=== PATIENT | female | born 1990 | race Caucasian/White ===

== ENCOUNTER 2017-06-28 08:00 | Inpatient (IN) ==
[2017-06-28] MEDS ORDERED: Famotidine 20 MG/2 ML VIAL IVP PRN (08:47)
[2017-06-28] MEDS ORDERED: Naloxone 0.4 MG/ML INJ IVP PRN ×2 (08:47→15:19)
[2017-06-28] MEDS ORDERED: Ringers Solution, Lactated 1,000 ML ONE ×3 (08:50→17:10)
[2017-06-28] MEDS ORDERED: Oxytocin 20 units/ LR 1000 mL 20 UNIT/1,000 ML BAG IVC SCH ×2 (09:00→18:49)
[2017-06-28] MEDS ORDERED: Ringers Solution, Lactated 1,000 ML IVC SCH ×2 (09:00→15:30)
[2017-06-28 09:32] LABS: Amphetamine Screen,Urine Negative ng/mL (Cutoff=1000); Barbiturate Screen,Urine Negative ng/mL (Cutoff=200); Benzodiazepines Screen,Urine Negative ng/mL (Cutoff=200); Cannabinoid Screen,Urine Positive ng/mL (Cutoff = 50); Cocaine Screen,Urine Negative ng/mL (Cutoff= 300); Opiate Screen,Urine Negative ng/mL (Cutoff=300); Phencyclidine Screen,Urine Negative ng/mL (Cutoff=25)
[2017-06-28 09:36] LABS: Basophils % 0.2 %; Eosinophils # 0.1 K/mcL (0.0-0.6); Eosinophils % 0.5 %; Hemoglobin 10.3 g/dL (11.5-15.4); Immature Granulocytes % 0.6 % (0-4); Lymphocytes # 2.1 K/mcL (0.6-4.6); Lymphocytes % 16.9 %; Mean Corpuscular HGB Conc 33.2 g/dL (31.6-35.5); Mean Corpuscular Hemoglobin 28.2 pg (28.0-33.3); Mean Corpuscular Volume 84.9 fL (83.0-100.0); Mean Platelet Volume 10.9 fL (9.4-12.4); Monocytes # 0.5 K/mcL (0.0-1.3); Monocytes % 3.9 %; Neutrophils # 9.8 K/mcL (1.6-8.9); Platelet Count 223 K/mcL (140-400); Red Blood Count 3.65 M/mcL (3.82-4.97); Red Cell Distribution Width 13.2 % (11.5-14.5); Segmented Neutrophils % 77.9 %
--- NOTE | 2017-06-28 09:44 | OB/GYN History & Physical ---
Date of Encounter: 06/28/17 Time of Encounter: 09:40 Assessment and Plan (1) and not yet delivered in third trimester Current visit: Yes Status: Acute (2) 39 weeks gestation of Current visit: Yes Status: Acute (3) Encounter for elective induction of labor Current visit: Yes Status: Acute Patient will be induced with Pitocin plan is to anticipate vaginal delivery History of Present Illness HPI: Ms. Tay is a 26 year old female 5 para 0101 at 39 and one sevenths weeks by 7-5/7 week ultrasound who presented for induction of labor secondary to term with favorable cervix. Patient was 4 cm in the office last week and requested we introduced a possible. Patient states she been having occasional contractions nothing that is tolerable denies any leaking of fluid. States is having good movement. Patient is requesting a tubal ligation tubal papers have previously been signed. Patient is GBS negative, rubella positive, Varicella positive, Rh+ Past Med Surg Social Fam HX - Past Medical History Source: patient, old records reviewed Medical history: no medical history Psychiatric history: no psych history - Social History Smoking Status: Current every day smoker Packs per day: 4 cigerattes a day Smokeless Tobacco Status: No Alcohol use: none Drug use: none Occupational status: unemployed Current living situation: Home - Independent Activity Level: Independent ambulation Recent Out of Country Travel Within the Last 8 Weeks: No Exposure or Possible Exposure to Illness During Travel: No - Additional Family History Additional family history: Family history is noncontributory at this time Obstetrical History - Pregnancies : 5 Para: 1 Term: 1 : 0 Ab's: 3 Livin Medications and Allergies Formula Tablet tab PO DAILY 06/28/17 [History] 3 Allergy/AdvReac Type Severity Reaction Status Date / Time No Known Allergies Allergy Verified 09/03/16 21:34 Exam - Constitutional Constitutional: well developed, well nourished, no acute distress, average body habitus - HEENT HEENT: EOMI, PERRL, Mucus Membranes Moist - Neck Neck exam: full ROM - Lungs Respiratory exam: CTAB - Cardiovascular Cardiovascular exam: RRR - Cervix Dilation: 4 Effacement: 80 Station: 0 ( heart tones 140s and reactive no contraction seen) Results Result Diagrams: 06/28/17 08:48 Abnormal lab results WBC 12.6 K/mcL (4.3-11.1) H 06/28/17 08:48 RBC 3.65 M/mcL (3.82-4.97) L 06/28/17 08:48 Hgb 10.3 g/dL (11.5-15.4) L 06/28/17 08:48 Hct 31.0 % (35.3-44.9) L 06/28/17 08:48 Neutrophils # 9.8 K/mcL (1.6-8.9) H 06/28/17 08:48 U Marijuana (THC) Screen Positive ng/mL (Cutoff = 50) H 06/28/17 08:47 All other labs normal. - VTE Reasons for not Prescribing Prophylaxis: Treatment not Indicated - Low risk for VTE
[2017-06-28] MEDS ORDERED: Ringers Solution, Lactated 500 ML IVC ONE (11:55)
[2017-06-28] MEDS ORDERED: EPHEDrine 50 MG/ML VIAL IVP PRN (11:55)
[2017-06-28] MEDS ORDERED: Epidural Premix (fent/bupiv) 110 ML EP ONE (11:56)
[2017-06-28] MEDS ORDERED: Epidural Premix (fent/bupiv) 110 ML EP SCH (12:00)
--- NOTE | 2017-06-28 12:22 | Anesthesia Evaluation PreOp ---
Date of Encounter: 06/28/17 Time of Encounter: 12:21 - Past History Planned Operation: ISHMAEL Cardiac History: Denies any Significant Hx Pulmonary History: Smoker OPERATIONS DEVELOPER History: Denies Any Significant HX Other Medical History: Denies Any Significant HX Anesthesia History: No Prior Anesthetic Complications, Past Anesthesia Alcohol Use: none Drug use: none Medications and Allergies Formula Tablet tab PO DAILY 06/28/17 [History] 3 Allergy/AdvReac Type Severity Reaction Status Date / Time No Known Allergies Allergy Verified 09/03/16 21:34 - Meds/Allergy Pre-op Review Medications Reviewed: Yes Allergies Reviewed: Yes Beta Blockers on Current Med List: No Anesthesia Results - Labs 06/28/17 08:48 Anesthesia Exam O2 Sat Height 1.75 m Weight 91 kg NPO (# of Hours): 5 Pain Scale: 9 Pain Scale Used: Numeric (1 - 10) - HEENT Pupil (Motor): Pupils equal Mallampati: II Teeth: Normal Oral Opening: Greater than 3 - OPERATIONS DEVELOPER LOC: Oriented OPERATIONS DEVELOPER Motor: Normal RUE, Normal LUE, Normal RLE, Normal LLE, Normal Face OPERATIONS DEVELOPER Sensory: Normal: RUE, LUE, RLE, LLE, Face - Cardiac Rhythm: Regular Murmur: None JVD: No Carotid Bruit: No - Pulmonary Breath Sounds: bilateral Clear Respiratory Effort: Symmetrical Anesthesia Assess/Plan ASA Score: 2 Modified To Scale for Level of Consciousness: Cooperative, oriented, and tranquil Anesthetic Plan: General (plan b), Regional (plan a) Autologous Blood: Yes Monitoring Plan: Standard Monitors
--- NOTE | 2017-06-28 12:24 | Anesthesia Procedures ---
Date of Encounter: 06/28/17 Time of Encounter: 12:22 Procedures: Anesthesia - Epidural/Spinal Patient ID/Chart reviewed: Yes Patient examined: Yes OB Eval: Gestational age: 39 OB Eval: : 5 OB Eval: Hx Para: 1 OB Eval: Dilated at (cm): 4 OB Eval: Contractions: Non-stressed pattern Supplemental Oxygen: None/Room Air Site Prep: Aseptic Technique, Sterile prep and drape, Povidone-Iodine 1% Patient position: upright Local Anesthetic: Lidocaine 1% Amount of Local Anesthetic used: 3 Touhy Needle Gauge: 18 Touhy Needle Depth (cm): 8 Catheter Depth at Skin (cm): 19 Test Dose (1.5% Lido + Epi): Volume given (mls): 5 Test Dose Result: Negative Loading Dose: Other: 10mls of epidural pharm bag premix solution Loading Dose Administered: Thru Catheter Infusion Med: 0.125% Bupivacaine w/ 2 mcg/ml Fentanyl Infusion Rate (mls/hr): 15 ([id number]) Catheter Secured in Place: Tegaderm, Tape Interspace Used: L3-L4 Loss of Resistance (KAYODE): Yes Blood: No CSF: No Paresthesia: No Procedure: pt tolerated procedure well. no complications. vss. fhr stable. see nursing notes for full vitals.
[2017-06-28] MEDS ORDERED: Lidocaine 1% 20 ML MDV INFILT PRN (14:13)
[2017-06-28] MEDS ORDERED: *HR* Propofol 200 MG/20 ML VIAL IVP ONE (14:52)
[2017-06-28] MEDS ORDERED: Lidocaine -MPF 2% 5 ML VIAL ONE (15:01)
[2017-06-28] MEDS ORDERED: *HR* Succinylcholine 200 MG/10 ML VIAL IVP ONE (15:01)
[2017-06-28] MEDS ORDERED: *HR* Rocuronium Bromide 50 MG/5 ML VIAL ONE (15:01)
[2017-06-28] MEDS ORDERED: *HR* FentaNYL (PF) 100 MCG/2 ML VIAL ONE (15:02)
[2017-06-28] MEDS ORDERED: Ondansetron 4 MG/2 ML VIAL ONE ×2 (15:15→15:58)
[2017-06-28] MEDS ORDERED: Dexamethasone 4 MG/ML VIAL ONE (15:15)
[2017-06-28] MEDS ORDERED: MORPHINE SUL Oral CONC 10 MG/0.5 ML ORAL.SYG SL PRN (15:19)
[2017-06-28] MEDS ORDERED: Acetaminophen IV 1,000 MG/100 ML INFUS..BTL IVPB ONE (15:19)
[2017-06-28] MEDS ORDERED: Ondansetron 4 MG/2 ML VIAL IVP ONE (15:19)
[2017-06-28] MEDS ORDERED: *HR* OxyCODONE Immed Rel 5 MG TABLET PO PRN (15:19)
[2017-06-28] MEDS ORDERED: Albuterol 2.5 MG/3 ML NEBULIZER IH ONE (15:19)
[2017-06-28] MEDS ORDERED: *HR* Meperidine 25 MG/ML SYRINGE IVP PRN (15:19)
[2017-06-28] MEDS ORDERED: *HR* Promethazine 25 MG/ML VIAL IVP PRN (15:19)
[2017-06-28 15:45] LABS: Basophils % 0.2 %; Eosinophils # 0.1 K/mcL (0.0-0.6); Eosinophils % 0.4 %; Hematocrit 24.6 % (35.3-44.9); Immature Granulocytes % 0.7 % (0-4); Immature Platelets 7.4 % (1.1-6.1); Lymphocytes # 2.9 K/mcL (0.6-4.6); Lymphocytes % 15.6 %; Mean Corpuscular HGB Conc 32.5 g/dL (31.6-35.5); Mean Corpuscular Hemoglobin 28.5 pg (28.0-33.3); Mean Corpuscular Volume 87.5 fL (83.0-100.0); Mean Platelet Volume 11.2 fL (9.4-12.4); Monocytes # 0.9 K/mcL (0.0-1.3); Monocytes % 4.9 %; Neutrophils # 14.4 K/mcL (1.6-8.9); Platelet Count 244 K/mcL (140-400); Red Blood Count 2.81 M/mcL (3.82-4.97); Red Cell Distribution Width 13.1 % (11.5-14.5); Segmented Neutrophils % 78.2 %
[2017-06-28] MEDS ORDERED: *HR* Promethazine 25 MG/ML VIAL IVP ONE (16:05)
--- NOTE | 2017-06-28 16:05 | OB/GYN Procedure Note ---
Delivery - Delivery Date: 06/28/17 Provider: Donovan Lambert Intrapartum events: none Delivery induction: oxytocin Delivery monitor: external FHT, external uterine Anesthesia: local, epidural Estimated Blood Loss: 1,000 ( hemorrhage due to retained placenta) - (s) Infant A Infant Delivery Date: 06/28/17 Delivery Time: 14:20 Presentation: vertex Position: PAT Route of delivery: Gender: Male Viability: Viable Pounds: 7 Ounces: 0 Weight Gram: 3.185 kg at 1 minute: 8 at 5 mins: 9 Shoulder Dystocia: not encountered Specimens collected: cord blood Placenta: spontaneous, uterine exploration, retained Cord: 3 umbilical vessels - Repair Episiotomy: midline Laceration Description: None - Complications Delivery complications: hemorrhage, retained placenta Delivery comments: Patient is a 26-year-old 5 para 1031 at 39 and 1 since weeks who presented for induction of labor secondary to term with favorable cervix. Patient was only 4 cm in the office this week and wanted to be induced. Patient was brought to labor and delivery where she was still 4 cm 0 station she was started on Pitocin she has spontaneous rupture membranes of clear fluid she received an epidural soon after this within 2 hours patient was complete and pushing she pushed for approximately 15 minutes, the baby started having decelerations down to the 60s and 70s with slow return to baseline status , and the patient was not able to push through the perineum. Because tones were not coming back to baseline in midline episiotomy was cut and we delivered a viable male in left occiput anterior presentation at 1420. The was placed on the abdomen and bulb suctioned. Cord is clamped and cut and cord blood was then collected. Placenta was delivered spontaneously with a three- vessel cord was noted she had trailing membranes. These membranes were grasped and a large portion of membranes were removed. Patient had minimal bleeding at this time and we proceeded to repair the midline episiotomy with a 3-0 Monocryl in the usual fashion along with 3-0 Vicryl. After we had repaired the episiotomy patient was noted to have significant amount of bleeding with large clots. The uterus is explored and she was noted to have no placental tissue and membranes within the cavity. I was able to remove a large amount of membranes and placental tissue a bedside but we will getting into significant amount of bleeding and blood loss and I felt it was not getting it all out. Patient's epidural was not working as well as it would like felt it was unsafe to continue in the room and I recommended we take her to the operating room for a D&C. Please refer to the operative note for the remaining portion of this procedure. - Disposition Mom disposition: to OR [place] disposition: taken to nursery
--- NOTE | 2017-06-28 16:18 | Operative Note ---
Date of procedure: 06/28/17 Pre-op diagnosis: Status post vaginal delivery, hemorrhage, retained placenta Post-op diagnosis: same (With placenta accreta) Procedure: Dilatation and curettage Complications: Intraoperative hemorrhage Anesthesia: CHARLENE Surgeon: Donovan Lambert Was there an mortgage assistant present: No Estimated blood loss (cc): 500 Specimen: None Condition: stable Disposition: other (Labor and delivery room) Procedure in Detail: Patient is a 26-year-old 5 para 1031 status post vaginal delivery in developed significant hemorrhage secondary to retained placenta immediately after delivery. I was unable to get the bleeding under control in the patient's room and recommended D&C in the operating room. Procedure: Patient was taken the operating room and general anesthesia was found to be adequate. She was placed in dorsolithotomy position prepped and draped in usual fashion. Timeout was then obtained. Patient was explored large amount of clots were removed from the endometrial and I could feel irregularities to the anterior uterine wall. Using the banjo curet enlarged ring forceps I was able to peel off large amount of tissue and retained membranes. Patient continued to have significant amount of bleeding she did receive 2 doses of Methergine IM intraoperatively and 600 g of Cytotec rectally intraoperatively. We did attempt to place a Jain catheter and follow- up a 30 mL balloon in the endometrial cavity to see if we could tamponard off the bleeding but the catheter balloon would not stay in the cavity. We attempted one more scraping with the curette and at this point bleeding did significantly decrease. At this point it was noted that my episiotomy had opened back up and this was reapproximated with the 3-0 Monocryl while we observed for excessive bleeding. We did observe the patient for approximately 10 minutes and she was noted to have minimal bleeding at this time we did type and cross the patient for 2 units of blood and going to come back 8 and we will transfuse 2 units. With minimal bleeding noted the procedure was then terminated. Patient will be taken to the recovery room where she will be observed for a minimum of 2 hours and 1 stable for transfer to the floor.. Sponge counts were correct 3. Patient did receive preoperative antibiotic.
[2017-06-28] MEDS ORDERED: 0.9 % Sodium Chloride 1,000 ML ONE ×2 (16:29→17:10)
[2017-06-28] MEDS ORDERED: Measles/Mumps/Rubella Vacc 0.5 ML VIAL SQ PRN (18:49)
[2017-06-28] MEDS ORDERED: Acetaminophen 325 MG TABLET PO PRN (18:49)
[2017-06-28] MEDS: *HR* HYDROcodone/Acet 5/325 mg TABLET PO PRN (19:37)
[2017-06-28] MEDS: Ibuprofen 600 MG TABLET PO PRN (21:16)
[2017-06-28] MEDS: Benzocaine/Menthol 56 GM AEROSOL SPRAY TP PRN (21:53)
[2017-06-28] MEDS: ceFAZolin 2,000 MG in D5% in Water 100 ML IVPB SCH (22:59)
[2017-06-29 04:22] LABS: Basophils % 0.1 %; Hematocrit 22.2 % (35.3-44.9); Hemoglobin 7.6 g/dL (11.5-15.4); Immature Granulocytes % 0.7 % (0-4); Lymphocytes # 2.4 K/mcL (0.6-4.6); Lymphocytes % 10.2 %; Mean Corpuscular HGB Conc 34.2 g/dL (31.6-35.5); Mean Corpuscular Hemoglobin 28.6 pg (28.0-33.3); Mean Corpuscular Volume 83.5 fL (83.0-100.0); Mean Platelet Volume 11.3 fL (9.4-12.4); Monocytes # 1.2 K/mcL (0.0-1.3); Monocytes % 4.9 %; Neutrophils # 19.9 K/mcL (1.6-8.9); Platelet Count 158 K/mcL (140-400); Red Blood Count 2.66 M/mcL (3.82-4.97); Red Cell Distribution Width 13.4 % (11.5-14.5); Segmented Neutrophils % 84.1 %
[2017-06-29] MEDS: ceFAZolin 2,000 MG in D5% in Water 100 ML IVPB SCH ×2 (06:41→16:39)
[2017-06-29] MEDS: Prenatal Vit/FA 1 EACH TABLET PO SCH (07:21)
[2017-06-29] MEDS: *HR* HYDROcodone/Acet 5/325 mg TABLET PO PRN ×3 (07:21→20:22)
[2017-06-29] MEDS: Benzocaine/Menthol 56 GM AEROSOL SPRAY TP PRN (07:22)
--- NOTE | 2017-06-29 08:26 | OB/GYN Progress Note ---
Date of Encounter: 06/29/17 Time of Encounter: 08:25 - Assessment and Plan (1) Retained products of conception, following delivery with hemorrhage Current Visit: Yes Status: Acute Transfuse 1 unit PRBC Monitor VS Reassess Hgb tomorrow morning Continue IV antibiotics Continue tocolytics 24 hours post delivery Anticipate discharge in AM (2) Vaginal delivery Current Visit: Yes Status: Acute Continue routine care Anticipate discharge tomorrow Subjective - Subjective Principal diagnosis: Vaginal Delivery Interval history: VSS. States feeling better than yesterday but still weak and tired. Discussed receiving another unit of blood, patient agreeable "if you think I need it." Pain well controlled Tolerating regular diet Voiding without difficulty Denies chest pain, tachycardia or shortness of breath Holding infant, reports baby taking formula well Significant other supportive at bedside. Patient reports: appetite normal, voiding normally, pain well controlled, ambulating normally [place]: doing well, bottle feeding Objective - Latest Vital Signs Latest vital signs: Vital Signs Temp Pulse Pulse Resp BP Pulse Ox 06/29/17 07:53 97.9 F 77 16 139/87 99 06/29/17 02:00 97.8 F 77 77 16 130/90 100 06/28/17 21:00 98.7 F 88 88 14 150/82 06/28/17 20:00 98.4 F 102 14 136/98 98 06/28/17 19:30 98.9 F 94 16 115/82 99 06/28/17 19:00 14 06/28/17 17:30 98.4 F 117 18 106/81 06/28/17 17:14 97.8 F 114 16 101/78 06/28/17 17:01 97.8 F 112 16 125/100 100 06/28/17 16:50 98.5 F 117 20 111/70 100 06/28/17 16:32 97.5 F L 115 20 130/80 Intake and Output 06/28/17 06/29/17 06/29/17 23:59 07:59 15:59 Intake Total 990 / 990 500 / 500 Output Total 400 / 400 1200 / 1200 Balance 590 / 590 -700 / -700 Intake: IV Fluids 100 / 100 Ancef 2,000 MG In Dextrose 5% 100 / 100 100 ML @ 200 mls/hr IVPB Q8HR [facility] Rx#:[id number] Oral 500 / 500 Blood Product 690 / 690 Rbcs Leuko Poor As-1 Unit 340 / 340 [id number] Rbcs Leuko Poor As-1 Unit 350 / 350 [id number] Free Water 200 / 200 Output: Urine 400 / 400 1200 / 1200 - Exam Lungs: bilateral: normal Chest: Normal S1, Normal S2 Extremities: Present: normal Abdomen: Present: normal appearance, soft, tenderness (on palpation) Uterus: Present: firm Uterus Position: 1 Finger Below Umbilicus, Midline - Labs Labs: Laboratory Results - last 24 hr 06/28/17 06/28/17 06/28/17 08:47 08:48 15:27 WBC 12.6 H 18.4 H RBC 3.65 L 2.81 L Hgb 10.3 L 8.0 L D Hct 31.0 L 24.6 L MCV 84.9 87.5 MCH 28.2 28.5 MCHC 33.2 32.5 RDW 13.2 13.1 Plt Count 223 244 MPV 10.9 11.2 Immature Gran % 0.6 0.7 Seg Neutrophils % 77.9 78.2 Lymphocytes % 16.9 15.6 Monocytes % 3.9 4.9 Eosinophils % 0.5 0.4 Basophils % 0.2 0.2 Neutrophils # 9.8 H 14.4 H Lymphocytes # 2.1 2.9 Monocytes # 0.5 0.9 Eosinophils # 0.1 0.1 Basophils # 0.0 0.0 Immature Plt Fraction 7.4 H Urine Opiates Screen Negative Ur Barbiturates Screen Negative Ur Phencyclidine Scrn Negative Ur Amphetamines Screen Negative U Benzodiazepines Scrn Negative Urine Cocaine Screen Negative U Marijuana (THC) Screen Positive H Blood Type Antibody Screen Crossmatch 06/28/17 06/29/17 15:27 04:07 WBC 23.7 H RBC 2.66 L Hgb 7.6 L Hct 22.2 L MCV 83.5 MCH 28.6 MCHC 34.2 RDW 13.4 Plt Count 158 MPV 11.3 Immature Gran % 0.7 Seg Neutrophils % 84.1 Lymphocytes % 10.2 Monocytes % 4.9 Eosinophils % 0.0 Basophils % 0.1 Neutrophils # 19.9 H Lymphocytes # 2.4 Monocytes # 1.2 Eosinophils # 0.0 Basophils # 0.0 Immature Plt Fraction Urine Opiates Screen Ur Barbiturates Screen Ur Phencyclidine Scrn Ur Amphetamines Screen U Benzodiazepines Scrn Urine Cocaine Screen U Marijuana (THC) Screen Blood Type A POSITIVE Antibody Screen NEGATIVE Crossmatch See Detail
[2017-06-29] MEDS ORDERED: Methylergonovine 0.2 MG/ML AMPUL IM ONE (08:31)
[2017-06-29] MEDS ORDERED: miSOPROStol 100 MCG TABLET PO ONE (08:31)
[2017-06-29] MEDS ORDERED: 0.9 % Sodium Chloride 1,000 ML ONE (08:51)
[2017-06-29] MEDS ORDERED: *HR* Labetalol 20 MG/4 ML SYRINGE IVP PRN (09:46)
[2017-06-29] MEDS: Ibuprofen 600 MG TABLET PO PRN ×2 (10:33→16:34)
[2017-06-29 15:30] LABS: Basophils % 0.2 %; Eosinophils % 0.2 %; Hematocrit 27.2 % (35.3-44.9); Hemoglobin 9.3 g/dL (11.5-15.4); Immature Granulocytes % 0.7 % (0-4); Lymphocytes # 3.8 K/mcL (0.6-4.6); Lymphocytes % 21.1 %; Mean Corpuscular HGB Conc 34.2 g/dL (31.6-35.5); Mean Corpuscular Hemoglobin 29.2 pg (28.0-33.3); Mean Corpuscular Volume 85.5 fL (83.0-100.0); Monocytes # 0.8 K/mcL (0.0-1.3); Monocytes % 4.6 %; Neutrophils # 13.3 K/mcL (1.6-8.9); Platelet Count 170 K/mcL (140-400); Red Blood Count 3.18 M/mcL (3.82-4.97); Red Cell Distribution Width 13.7 % (11.5-14.5); Segmented Neutrophils % 73.2 %
[2017-06-29 15:50] LABS: Alanine Aminotransferase 10 Units/L (7-52); Aspartate Amino Transferase 36 Units/L (13-39); BUN/Creatinine Ratio 16 (6-26); Blood Urea Nitrogen 8 mg/dL (6-20); Lactate Dehydrogenase 293 Units/L (140-271); Uric Acid 4.4 mg/dL (2.3-7.6); eGFR For African Americans > 60 (> 60); eGFR For Non-African Americans > 60 (> 60)
[2017-06-29 20:58] LABS: Hematocrit 30.1 % (35.3-44.9); Hemoglobin 10.2 g/dL (11.5-15.4)
[2017-06-30] MEDS ORDERED: ceFAZolin 2,000 MG in 0.9 % Sodium Chloride 100 ML IVPB SCH
[2017-06-30] MEDS: Ibuprofen 600 MG TABLET PO PRN ×2 (00:54→08:49)
[2017-06-30 04:53] LABS: Basophils % 0.3 %; Eosinophils # 0.1 K/mcL (0.0-0.6); Eosinophils % 0.6 %; Hematocrit 29.2 % (35.3-44.9); Hemoglobin 9.7 g/dL (11.5-15.4); Lymphocytes # 4.6 K/mcL (0.6-4.6); Lymphocytes % 32.1 %; Mean Corpuscular HGB Conc 33.2 g/dL (31.6-35.5); Mean Corpuscular Hemoglobin 28.7 pg (28.0-33.3); Mean Corpuscular Volume 86.4 fL (83.0-100.0); Mean Platelet Volume 11.2 fL (9.4-12.4); Monocytes # 0.6 K/mcL (0.0-1.3); Monocytes % 4.2 %; Neutrophils # 8.8 K/mcL (1.6-8.9); Platelet Count 190 K/mcL (140-400); Red Blood Count 3.38 M/mcL (3.82-4.97); Red Cell Distribution Width 13.8 % (11.5-14.5); Segmented Neutrophils % 61.8 %
[2017-06-30 05:07] LABS: Alanine Aminotransferase 12 Units/L (7-52); Aspartate Amino Transferase 39 Units/L (13-39); BUN/Creatinine Ratio 12 (6-26); Blood Urea Nitrogen 5 mg/dL (6-20); Lactate Dehydrogenase 288 Units/L (140-271); Uric Acid 4.3 mg/dL (2.3-7.6); eGFR For African Americans > 60 (> 60); eGFR For Non-African Americans > 60 (> 60)
[2017-06-30 08:47] VITALS: BP 127/86
[2017-06-30] MEDS: Prenatal Vit/FA 1 EACH TABLET PO SCH (08:49)
--- NOTE | 2017-06-30 08:51 | Discharge Summary ---
Date of Encounter: 06/30/17 Time of Encounter: 08:47 - Discharge Diagnosis (1) Vaginal delivery Priority: Primary Status: Acute Comments: Continue routine care discharge home today (2) Retained products of conception, following delivery with hemorrhage Priority: Secondary Status: Acute Comments: Continue Ferrous sulfate Percocet for break through pain: OAR[facility] report reviewed Discharge home today follow up with Dr. Lambert in 4 weeks - Discharge Medications Prescriptions: HYDROcodone/Acet 5/325 mg [[place] 5-325 mg] 1 tab PO Q6HR PRN 3 Days #12 tablet PRN Reason: Moderate Pain (4-6) Ibuprofen [Motrin] 600 mg PO Q6HR PRN #60 tablet PRN Reason: Cramping Ferrous Sulfate 325 mg PO BID #60 tablet Home Medications: Formula Tablet tab PO DAILY 06/28/17 [History] Benzocaine/Menthol [place] [Dermoplast [place]] 1 appl TP QID PRN aerosol 06/30/17 [Rx] Docusate [Colace] 100 mg PO BID capsule 06/30/17 [Rx] Ferrous Sulfate 325 mg PO BID #60 tablet 06/30/17 [Rx] HYDROcodone/Acet 5/325 mg [[place] 5-325 mg] 1 tab PO Q6HR PRN 3 Days #12 tablet 06/30/17 [Rx] Ibuprofen [Motrin] 600 mg PO Q6HR PRN #60 tablet 06/30/17 [Rx] Vit/FA 1 each PO DAILY tablet 06/30/17 [Rx] Allergies/Adverse Reactions: 3 Allergy/AdvReac Type Severity Reaction Status Date / Time No Known Allergies Allergy Verified 09/03/16 21:34 Data Procedures and tests throughout hospitalization: Laboratory Tests 06/28/17 06/28/17 06/28/17 08:47 08:48 15:27 WBC 12.6 H 18.4 H RBC 3.65 L 2.81 L Hgb 10.3 L 8.0 L D Hct 31.0 L 24.6 L MCV 84.9 87.5 MCH 28.2 28.5 MCHC 33.2 32.5 RDW 13.2 13.1 Plt Count 223 244 MPV 10.9 11.2 Immature Gran % 0.6 0.7 Seg Neutrophils % 77.9 78.2 Lymphocytes % 16.9 15.6 Monocytes % 3.9 4.9 Eosinophils % 0.5 0.4 Basophils % 0.2 0.2 Neutrophils # 9.8 H 14.4 H Lymphocytes # 2.1 2.9 Monocytes # 0.5 0.9 Eosinophils # 0.1 0.1 Basophils # 0.0 0.0 Immature Plt Fraction 7.4 H BUN Creatinine Est GFR ( Amer) Est GFR (Non-Af Amer) BUN/Creatinine Ratio Uric Acid AST ALT Lactate Dehydrogenase Urine Opiates Screen Negative Ur Barbiturates Screen Negative Ur Phencyclidine Scrn Negative Ur Amphetamines Screen Negative U Benzodiazepines Scrn Negative Urine Cocaine Screen Negative U Marijuana (THC) Screen Positive H Blood Type Antibody Screen Crossmatch 06/28/17 06/29/17 06/29/17 15:27 04:07 15:09 WBC 23.7 H 18.1 H RBC 2.66 L 3.18 L Hgb 7.6 L 9.3 L D Hct 22.2 L 27.2 L MCV 83.5 85.5 MCH 28.6 29.2 MCHC 34.2 34.2 RDW 13.4 13.7 Plt Count 158 170 MPV 11.3 11.0 Immature Gran % 0.7 0.7 Seg Neutrophils % 84.1 73.2 Lymphocytes % 10.2 21.1 Monocytes % 4.9 4.6 Eosinophils % 0.0 0.2 Basophils % 0.1 0.2 Neutrophils # 19.9 H 13.3 H Lymphocytes # 2.4 3.8 Monocytes # 1.2 0.8 Eosinophils # 0.0 0.0 Basophils # 0.0 0.0 Immature Plt Fraction BUN Creatinine Est GFR ( Amer) Est GFR (Non-Af Amer) BUN/Creatinine Ratio Uric Acid AST ALT Lactate Dehydrogenase Urine Opiates Screen Ur Barbiturates Screen Ur Phencyclidine Scrn Ur Amphetamines Screen U Benzodiazepines Scrn Urine Cocaine Screen U Marijuana (THC) Screen Blood Type A POSITIVE Antibody Screen NEGATIVE Crossmatch See Detail 06/29/17 06/29/17 06/30/17 15:09 20:23 04:15 WBC 14.3 H RBC 3.38 L Hgb 10.2 L 9.7 L Hct 30.1 L 29.2 L MCV 86.4 MCH 28.7 MCHC 33.2 RDW 13.8 Plt Count 190 MPV 11.2 Immature Gran % 1.0 Seg Neutrophils % 61.8 Lymphocytes % 32.1 Monocytes % 4.2 Eosinophils % 0.6 Basophils % 0.3 Neutrophils # 8.8 Lymphocytes # 4.6 Monocytes # 0.6 Eosinophils # 0.1 Basophils # 0.0 Immature Plt Fraction BUN 8 Creatinine 0.49 L Est GFR ( Amer) > 60 Est GFR (Non-Af Amer) > 60 BUN/Creatinine Ratio 16 Uric Acid 4.4 AST 36 ALT 10 Lactate Dehydrogenase 293 H Urine Opiates Screen Ur Barbiturates Screen Ur Phencyclidine Scrn Ur Amphetamines Screen U Benzodiazepines Scrn Urine Cocaine Screen U Marijuana (THC) Screen Blood Type Antibody Screen Crossmatch 06/30/17 04:15 WBC RBC Hgb Hct MCV MCH MCHC RDW Plt Count MPV Immature Gran % Seg Neutrophils % Lymphocytes % Monocytes % Eosinophils % Basophils % Neutrophils # Lymphocytes # Monocytes # Eosinophils # Basophils # Immature Plt Fraction BUN 5 L Creatinine 0.41 L Est GFR ( Amer) > 60 Est GFR (Non-Af Amer) > 60 BUN/Creatinine Ratio 12 Uric Acid 4.3 AST 39 ALT 12 Lactate Dehydrogenase 288 H Urine Opiates Screen Ur Barbiturates Screen Ur Phencyclidine Scrn Ur Amphetamines Screen U Benzodiazepines Scrn Urine Cocaine Screen U Marijuana (THC) Screen Blood Type Antibody Screen Crossmatch Labs on day of discharge: Labs from last 24 hours 06/30/17 06/30/17 06/29/17 04:15 04:15 20:23 WBC 14.3 H RBC 3.38 L Hgb 9.7 L 10.2 L Hct 29.2 L 30.1 L MCV 86.4 MCH 28.7 MCHC 33.2 RDW 13.8 Plt Count 190 MPV 11.2 Immature Gran % 1.0 Seg Neutrophils % 61.8 Lymphocytes % 32.1 Monocytes % 4.2 Eosinophils % 0.6 Basophils % 0.3 Neutrophils # 8.8 Lymphocytes # 4.6 Monocytes # 0.6 Eosinophils # 0.1 Basophils # 0.0 BUN 5 L Creatinine 0.41 L Est GFR ( Amer) > 60 Est GFR (Non-Af Amer) > 60 BUN/Creatinine Ratio 12 Uric Acid 4.3 AST 39 ALT 12 Lactate Dehydrogenase 288 H Blood Type Antibody Screen Crossmatch 06/29/17 06/29/17 06/28/17 15:09 15:09 15:27 WBC 18.1 H RBC 3.18 L Hgb 9.3 L D Hct 27.2 L MCV 85.5 MCH 29.2 MCHC 34.2 RDW 13.7 Plt Count 170 MPV 11.0 Immature Gran % 0.7 Seg Neutrophils % 73.2 Lymphocytes % 21.1 Monocytes % 4.6 Eosinophils % 0.2 Basophils % 0.2 Neutrophils # 13.3 H Lymphocytes # 3.8 Monocytes # 0.8 Eosinophils # 0.0 Basophils # 0.0 BUN 8 Creatinine 0.49 L Est GFR ( Amer) > 60 Est GFR (Non-Af Amer) > 60 BUN/Creatinine Ratio 16 Uric Acid 4.4 AST 36 ALT 10 Lactate Dehydrogenase 293 H Blood Type A POSITIVE Antibody Screen NEGATIVE Crossmatch See Detail Date of admission: 06/28/17 08:08 Primary care physician: PCP NONE Consults: 06/28/17 18:49 Consult to [facility]icker [CONS] Routine Comment: Vaginal delivery, consult needed Discharging clinician: Ying Pike Anticipated date of discharge: 06/30/17 - Patient Status Disposition: Home, Self-Care Condition: Good Functional capacity at discharge: independent ambulation - Discharge Instructions Follow Up With: NONE,PCP [Primary Care Provider] - Donovan Lambert DO [Partnered Physician] - - Diet and Activity Activity: increase activity as tolerated Diet: regular diet Hospital Course Reason for admission: induction of labor Delivery: Episiotomy: midline Other procedures: curettage complications: retained placenta Discharge diagnosis: IUP at term delivered [place] baby: male Time Attestation: Total time spent providing and/or coordinating discharge services: Time Spent: Less than 30 minutes Exam - Constitutional Vitals: Temp Pulse Resp BP Pulse Ox 97.8 F 89 16 125/86 99 06/30/17 04:07 06/30/17 04:07 06/30/17 04:07 06/30/17 04:07 06/30/17 04:07 General appearance IM: A&O X 3, pleasant, answers questions appropriately - Respiratory Respiratory exam: Present: CTAB - Cardiovascular Cardiovascular exam IM: Present: RRR, +S1, +S2 - GI/Abdominal GI/Abdominal exam IM: normal bowel sounds - Uterine Tone: Firm Uterus Position: 1 Finger Below Umbilicus, Midline - Extremities Exam Extremities exam IM: Present: full ROM, normal capillary refill, normal inspection - Neurological Exam Neurological exam: alert, oriented X3, reflexes normal
== END 2017-06-30 13:00 | disposition home or self-care (01) | DRG 541 ==
LOC: 1NENULAB 08:08 → 1NENUOBS 20:11
PROVIDERS: ADMIT Obstetrics & Gynecology; ATTEND Obstetrics & Gynecology